=== PATIENT | female | born 1965 | race Caucasian/White ===

== ENCOUNTER 2019-02-28 16:36 | Emergency (ER) | payer MEDICARE ==
[~2019-02-28] VITALS: Ht 162.6 cm; Wt 68.0 kg
[2019-02-28 17:00] VITALS: BP 187/79
--- NOTE | 2019-02-28 17:23 | PHYS DOC ---
Adult General Chief Complaint Chief Complaint: LOWER EXTREMITY SWELLING HPI HPI Patient is a 53-year-old female who presents with complaint of right knee pain after twisting her knee. Patient states that she was initially walking on it but pain got much worse and she states that she has had a number of pathologic fractures in the past and was concerned that she may have sustained a fracture again. She denies any other injuries. She rates pain at an 8 out of 10.[] Review of Systems Review of Systems Constitutional: Denies fever or chills [] Respiratory: Denies cough or shortness of breath [] Cardiovascular: No additional information not addressed in HPI [] Musculoskeletal: Complains of right knee pain [] Integument: Denies rash or skin lesions [] Allergies Allergies Allergies Coded Allergies Type Severity Reaction Last Updated Verified tetanus and diphtheria toxoids Allergy Unknown Unknown 02/28/19 Yes Physical Exam Physical Exam Constitutional: Well developed, well nourished, no acute distress, non-toxic appearance. [] Neck: Normal range of motion, no tenderness, supple, no stridor. [] Cardiovascular:Heart rate regular rhythm, no murmur [] Lungs & Thorax: Bilateral breath sounds clear to auscultation [] Extremities: Examination of right knee demonstrates tenderness to palpation, particularly along the medial joint line. There is a joint effusion noted on exam. Unable to fully assess ligamentous status due to reported pain. [] Neurologic: Alert and oriented X 3, no focal deficits noted. [] EKG EKG [] Radiology/Procedures Radiology/Procedures [] Impressions: PROCEDURE: KNEE RIGHT 3V Three-view right knee radiographs 02/28/2019 CLINICAL HISTORY: Twisting injury to the right knee. AP, lateral and oblique digital radiographs of the right knee were obtained. No fracture or dislocation of the right knee is seen. There is a small to moderate-sized right suprapatellar joint effusion. Moderate enthesophyte formation is seen involving the right aspect of the patella. Mild to moderate degenerative changes are seen involving all three compartments of the right knee. IMPRESSION: No fracture or dislocation of the right knee is seen. Electronically signed by: Qasim Jarvis MD (02/28/2019 5:53 PM) [facility] Course & Med Decision Making Course & Med Decision Making Pertinent Labs and Imaging studies reviewed. (See chart for details) [] Dragon Disclaimer Dragon Disclaimer This electronic medical record was generated, in whole or in part, using a voice recognition dictation system. Departure Departure: Impression: Primary Impression: Right knee sprain Disposition: HOME, SELF-CARE Condition: STABLE Referrals: PCP,NO (PCP) Patient Instructions: Knee Sprain Scripts Tramadol Hcl (TRAMADOL HCL) 50 Mg Tablet 50 MG PO PRN Q6HRS PRN for PAIN, #12 TAB Prov: JARAD SOLIS Jr. DO 02/28/19 Problem Qualifiers Primary Impression: Right knee sprain Encounter type: initial encounter Involved ligament of knee: unspecified ligament Qualified Codes: S83.91XA - Sprain of unspecified site of right knee, initial encounter JARAD SOLIS Jr. DO Feb 28, 2019 17:23
--- NOTE | 2019-02-28 17:56 | RAD ---
Three-view right knee radiographs 02/28/2019 CLINICAL HISTORY: Twisting injury to the right knee. AP, lateral and oblique digital radiographs of the right knee were obtained. No fracture or dislocation of the right knee is seen. There is a small to moderate-sized right suprapatellar joint effusion. Moderate enthesophyte formation is seen involving the right aspect of the patella. Mild to moderate degenerative changes are seen involving all three compartments of the right knee. IMPRESSION: No fracture or dislocation of the right knee is seen. Electronically signed by: Qasim Jarvis MD (02/28/2019 5:53 PM) [facility]
[2019-02-28] MEDS ORDERED: TRAM50TA PO (18:07)
== END 2019-02-28 18:28 | disposition home or self-care (01) ==
LOC: ER 16:36
DX: S83.91XA Sprain of unspecified site of right knee, initial encounter (principal); Z88.7 Allergy status to serum and vaccine; X50.1XXA Overexertion from prolonged static or awkward postures, initial encounter; Y93.89 Activity, other specified; Y92.89 Other specified places as the place of occurrence of the external cause; Y99.8 Other external cause status
CPT/HCPCS: 29505; 73562; 99284